=== PATIENT | female | born 1950 | race Caucasian/White ===

== ENCOUNTER 2016-12-24 20:24 | Inpatient (IN) | payer OTHER, BC ==
[~2016-12-24] VITALS: Ht 162.6 cm; Wt 76.6 kg
[2016-12-24 21:21] LABS: EOSINOPHIL (%) 0.3 % (0-5); EOSINOPHIL COUNT 0.1 K/uL (0-0.3); HEMATOCRIT 46.5 % (36.0-46.0); IMMATURE GRANULOCYTE (%) 0.6 % (0.0-0.7); IMMATURE GRANULOCYTE COUNT 0.1 K/uL; LYMPHOCYTE COUNT 1.6 K/uL (1.0-2.8); MCV 91.2 FL (83-99); MEAN PLAT.VOLUME 9.1 uM^3 (9.5-12.4); MONOCYTE (%) 5.5 % (3-12); NEUTROPHIL (%) 84.6 % (45-76); PLATELET COUNT 362 K/uL (156-360); RBC DIS.WIDTH-CV 12.3 % (11.8-14.6); RBC DIS.WIDTH-SD 41.1 % (39-53); WHITE BLOOD COUNT 17.7 K/uL (4.1-10.2)
[2016-12-24 21:31] LABS: CHLORIDE 107 mEq/L (99-109); POTASSIUM 3.9 mEq/L (3.7-5.4); SODIUM 138 mEq/L (136-147)
[2016-12-24 21:33] LABS: GLUCOSE 151 mg/dL (70-99)
[2016-12-24 21:34] LABS: ANION GAP 11 MEQ/L (2-14)
[2016-12-24 21:35] LABS: TOTAL BILIRUBIN 0.8 mg/dL (0.0-1.0)
[2016-12-24 21:36] LABS: ALKALINE PHOSPHATASE 95 IU/L (3-129)
[2016-12-24 21:37] LABS: GFR ESTIMATE (CALCULATED) > 59 mL/min/
[2016-12-24 21:38] LABS: UREA NITROGEN (BUN) 13 mg/dL (9-23)
[2016-12-24 23:33] LABS: ADD MIUA? YES; BILIRUBIN NEGATIVE; BLOOD SMALL; COLOR YELLOW ((YELLOW)); GLUCOSE (STRIP) NEGATIVE; KETONES 20; LEUKOCYTES NEGATIVE; NITRITE NEGATIVE; PROTEIN (STRIP) NEGATIVE; SPECIFIC GRAVITY 1.015 (1.000-1.030); UROBILINOGEN 0.2 MG/DL (0.2-1.0)
[2016-12-24 23:38] LABS: BACTERIA NONE SEEN /HPF; EPITHELIAL CELLS NONE SEEN /HPF; MUCUS TRACE /LPF; UCUL ADDED? NO; WHITE BLOOD CELLS 0-5 /HPF (0-5)
[2016-12-25] MEDS ORDERED: EPIPEN ADU0.3 MG/0.3 IM (00:57)
[2016-12-25] MEDS ORDERED: VITAMIN D32000 UNI1 PO (00:57)
[2016-12-25] MEDS ORDERED: SYNTHROID100 MCG PO (00:57)
[2016-12-25] MEDS ORDERED: COZAAR100 MG PO (00:57)
[2016-12-25] MEDS ORDERED: AMLODIPINE BESYL5 MG PO (00:57)
[2016-12-25] MEDS ORDERED: RESTASIS MULTI5.5 ML BOTH EYES (00:57)
[2016-12-25 03:42] VITALS: BP 152/76
[2016-12-25 07:55] VITALS: BP 141/60
[2016-12-25 16:00] VITALS: BP 122/68
[2016-12-25 23:56] VITALS: BP 146/66
[2016-12-26 03:45] VITALS: BP 143/67
[2016-12-26 05:45] LABS: MCH 31.3 PG (29.0-34.0); MCHC 33.4 G/DL (30.0-36.0); MCV 93.6 FL (83-99); MEAN PLAT.VOLUME 9.3 uM^3 (9.5-12.4); PLATELET COUNT 319 K/uL (156-360); RBC DIS.WIDTH-CV 12.7 % (11.8-14.6); RBC DIS.WIDTH-SD 43.9 % (39-53); RED BLOOD COUNT 4.38 M/uL (3.80-5.20); WHITE BLOOD COUNT 12.2 K/uL (4.1-10.2)
[2016-12-26 06:06] LABS: ANION GAP 10 MEQ/L (2-14); CHLORIDE 111 MEQ/L (99-109); GFR ESTIMATE (CALCULATED) 59 mL/min/; POTASSIUM 4.1 MEQ/L (3.7-5.4); SAMPLE HEMOLYSIS CHECK 0; SAMPLE ICTERIC CHECK 0; SAMPLE LIPEMIA CHECK 0; SODIUM 144 MEQ/L (136-147); UREA NITROGEN (BUN) 9 mg/dL (9-23)
[2016-12-26 06:16] LABS: GLUCOSE 88 mg/dL (70-99)
[2016-12-26 08:43] VITALS: BP 130/65
[2016-12-26 11:58] VITALS: BP 154/73
[2016-12-26] MEDS ORDERED: LEVAQUIN500 MG PO (15:58)
[2016-12-26] MEDS ORDERED: TYLENOL REGULA325 MG PO (15:59)
[2016-12-26] MEDS ORDERED: ZOFRAN4 MG PO (15:59)
[2016-12-26] MEDS ORDERED: TRAMADOL HCL50 MG PO (16:02)
[2016-12-26 16:48] VITALS: BP 1343/63
== END 2016-12-26 18:07 | disposition home or self-care (01) | DRG 669 ==
LOC: EME 20:24 → EDOF 12-25 02:17 → ENRESERV 12-25 02:20 → 5WEST 12-25 03:33 → ENRESERV 12-25 10:22 → CANRESERV 12-25 10:22 → 5WEST 12-26 18:07
PROVIDERS: Hospitalist; Internal Medicine; Physician Assistant
DX: N13.2 Hydronephrosis with renal and ureteral calculous obstruction (principal); N81.10 Cystocele, unspecified; I10 Essential (primary) hypertension; E03.9 Hypothyroidism, unspecified; E78.5 Hyperlipidemia, unspecified; Z88.1 Allergy status to other antibiotic agents
CPT/HCPCS: 74000; 74176; 80048; 80053; 81003; 82365 90; 85025; 85027; 87040; 99281; 99285; C1769; C2625; J0131; J1100; J1200; J1644; J1885; J1956; J2270; J2405; J2765; J3010; J7030; S0028

== ENCOUNTER → 2016-12-29 | Outpatient (CLI) | payer MEDICARE, BC ==
[~2016-12-29] MED LIST: AMLODIPINE BESYL5 MG PO; COZAAR100 MG PO; EPIPEN ADU0.3 MG/0.3 IM; LEVAQUIN500 MG PO; RESTASIS MULTI5.5 ML BOTH EYES; SYNTHROID100 MCG PO; TRAMADOL HCL50 MG PO; TYLENOL REGULA325 MG PO; VITAMIN D32000 UNI1 PO; ZOFRAN4 MG PO
== END | disposition home or self-care (01) ==
LOC: CDC 14:29
DX: Z01.810 Encounter for preprocedural cardiovascular examination (principal); I45.10 Unspecified right bundle-branch block; R94.31 Abnormal electrocardiogram [ECG] [EKG]
CPT/HCPCS: 93000

== ENCOUNTER 2017-03-02 08:15 | Day surgery (SDC) | payer OTHER, BC ==
[~2017-03-02] VITALS: Ht 162.6 cm; Wt 70.7 kg
[~2017-03-02 08:15] MED LIST changes: +CYTRA-2 ORAL S473 ML PO; +FLOMAX0.4 MG PO
[2017-03-02 09:29] VITALS: BP 150/66
[2017-03-02 14:00] VITALS: BP 128/60
[2017-03-02 14:52] VITALS: BP 117/56
== END 2017-03-02 15:00 | disposition home or self-care (01) ==
LOC: SDC 08:15
PROVIDERS: Urology
DX: N20.1 Calculus of ureter (principal); I10 Essential (primary) hypertension; E78.5 Hyperlipidemia, unspecified; E03.9 Hypothyroidism, unspecified; Z88.0 Allergy status to penicillin
CPT/HCPCS: 74000; 74420; 82365 90; C1758; C1769; C2625; J0690; J1100; J2175; J2405; J3010; Q0175